=== PATIENT | female | born 1980 | race Caucasian/White ===

== ENCOUNTER 2024-10-11 12:30 | Emergency (ER) | payer OTHER ==
[~2024-10-11] VITALS: Ht 165.1 cm; Wt 59.1 kg
[2024-10-11] MEDS ORDERED: Ondansetron 4 MG/2 ML VIAL IV ONE (12:45)
[2024-10-11] MEDS ORDERED: NS 1,000 ML IV SCH (12:45)
[2024-10-11 12:52] LABS: BASO # 0.05 K/mm3 (0.02-0.10); EOS # 0.14 K/mm3 (0.04-0.40); EOS % 1.9 % (1.0-5.0); HEMATOCRIT 35.8 % (37.0-47.0); HEMOGLOBIN 11.8 g/dL (12.5-16.0); LYMPH# 2.59 K/mm3 (1.50-4.00); MEAN CELL VOLUME 94 fl (78-100); MEAN CORPUSCULAR HEMOGLOBIN 31 pg (27-31); MEAN CORPUSCULAR HGB CONC 33 g/dL (33-37); MONO # 0.54 K/mm3 (0.20-0.80); NEU # 4.01 K/mm3 (1.40-6.50); PLATELET COUNT 370 K/mm3 (130-400); RED CELL DISTRIBUTION WIDTH 12.9 % (11.5-14.5); WHITE BLOOD COUNT 7.4 K/mm3 (4.8-10.8)
[2024-10-11 13:00] LABS: ALBUMIN 3.9 g/dL (3.5-5.0)
[2024-10-11 13:01] LABS: CALCIUM 8.6 mg/dL (8.3-10.5)
[2024-10-11 13:03] LABS: TOTAL PROTEIN 6.2 g/dL (6.4-8.3)
[2024-10-11 13:04] LABS: TOTAL BILIRUBIN 0.4 mg/dL (0.2-1.2)
[2024-10-11] MEDS ORDERED: NORTRIPTYLINE H50 M1 PO (13:28)
[2024-10-11] MEDS ORDERED: LEVOTHYROXINE0.05 MG PO (13:29)
[2024-10-11] MEDS ORDERED: cefTRIAXone 1 G in Water For Injection,Sterile 10 ML IV ONE (13:45)
[2024-10-11 13:56] LABS: URINE APPEARANCE CLOUDY (CLEAR)
[2024-10-11 14:21] VITALS: BP 137/87
[2024-10-11 16:35] LABS: URINE COLOR ORANGE (YELLOW)
== END 2024-10-11 14:28 | disposition home or self-care (01) ==
LOC: ED 12:30
PROVIDERS: Nurse Practitioner
DX: N39.0 Urinary tract infection, site not specified (principal); E86.0 Dehydration; E87.6 Hypokalemia
CPT/HCPCS: J0696; J2405; J7030